=== PATIENT | male | born 1980 | race Caucasian/White ===

== ENCOUNTER 2022-05-14 19:35 | Emergency (ER) | payer OTHER ==
[~2022-05-14] VITALS: Ht 182.9 cm; Wt 101.2 kg
[~2022-05-14 19:35] MED LIST: SERTRALINE HCL50 MG PO
== END 2022-05-14 22:54 | disposition home or self-care (01) ==
LOC: ED 19:35
DX: H57.04 Mydriasis (principal); Z87.891 Personal history of nicotine dependence
CPT/HCPCS: 99283